=== PATIENT | male | born 1980 | race African-American/Black ===

== ENCOUNTER 2017-06-03 21:02 | Emergency (ER) | payer OTHER ==
[~2017-06-03] VITALS: Ht 203.2 cm; Wt 88.2 kg
[~2017-06-03 21:02] MED LIST: FLEXERIL10 MG PO; GABAPENTIN300 MG PO; IBUPROFEN200 M1 PO; LORTAB 5-325 M1 EACH PO; MOTRIN800 MG PO; NAPROSYN500 MG PO; NAPROXEN500 MG PO; NOHOMEMEDS; PEN-VEE K,VEET500 MG PO; PREDNISONE10 MG PO
[2017-06-03 21:44] LABS: HEMATOCRIT 43.7 % (38.0-50.0); MCH 31.6 PG (29.0-34.0); MCHC 35.2 G/DL (30.0-36.0); MCV 89.7 FL (86-99); PLATELET COUNT 200 K/uL (156-360); RBC DIS.WIDTH-CV 12.7 % (11.8-14.6); RBC DIS.WIDTH-SD 42.2 % (39-53); RED BLOOD COUNT 4.87 M/uL (4.00-5.50); WHITE BLOOD COUNT 6.7 K/uL (4.1-10.2)
[2017-06-03 21:53] LABS: CHLORIDE 103 mEq/L (99-109); POTASSIUM 3.6 mEq/L (3.7-5.4); SODIUM 139 mEq/L (136-147)
[2017-06-03 21:55] LABS: GLUCOSE 109 mg/dL (70-99)
[2017-06-03 21:56] LABS: ANION GAP 12 MEQ/L (2-14)
[2017-06-03 21:59] LABS: GFR ESTIMATE (CALCULATED) > 59 mL/min/
[2017-06-03 22:00] LABS: UREA NITROGEN (BUN) 18 mg/dL (9-23)
[2017-06-03 22:07] LABS: TROP-I INTERPRETATION NEGATIVE; TROPONIN-I < 0.01 ng/mL (0.0-0.30)
[2017-06-04 00:37] LABS: TROP-I INTERPRETATION NEGATIVE; TROPONIN-I < 0.01 ng/mL (0.0-0.30)
[2017-06-04 00:55] VITALS: BP 154/79
== END 2017-06-04 00:56 | disposition home or self-care (01) ==
LOC: EME 21:02
PROVIDERS: Emergency Medicine
DX: R07.89 Other chest pain (principal); F17.200 Nicotine dependence, unspecified, uncomplicated
CPT/HCPCS: 71020; 71275; 80048; 84484; 85027; 93005; 99281; 99285; J7030